=== PATIENT | female | born 1960 | race Caucasian/White ===

== ENCOUNTER → 2017-11-23 | Outpatient (CLI) | payer MEDICARE, MEDICAID ==
[2015-03-05 16:20] VITALS: BP 129/81
[~2017-11-23] MED LIST: ADVAIR IH; AMOXICILLIN 8751 TAB PO; AZASAN75 MG PO; B-122000 MCG MM; BECONASE AQ NA42 MCG NAS; CALCIUM + D 5001 TAB PO; CLONAZEPAM1 MG PO; FLEXERIL10 MG PO; HUMALOG100 U/ML SC; LANTUS100 U/ML; LANTUS100 U/ML SC; LUNESTA2 MG PO; LYRICA100 MG PO; MAGNESIUM500 MG PO; NEURONTIN300 MG PO; NORCO 325 MG-101 TA1 PO; PREVACID 30MG30 M1 PO; SINGULAIR10 MG PO; XANAX1 MG PO; ZYRTEC10 MG PO; [UNRECOGNIZED DRUG - OTHER] PO
[2017-11-23 16:06] LABS: EOS % 0.8 % (1.0-5.0); HEMATOCRIT 40.2 % (37.0-47.0); HEMOGLOBIN 13.8 g/dL (12.5-16.0); LYMPH# 1.1 (1.50-4.00); MEAN CELL VOLUME 94 fl (78-100); MEAN CORPUSCULAR HEMOGLOBIN 32 pg (27-31); MEAN CORPUSCULAR HGB CONC 34 g/dL (33-37); MEAN PLATELET VOLUME 9.8 fl (7.4-10.4); MONO # 0.3 (0.20-0.80); NEU # 2.2 (1.40-6.50); PLATELET COUNT 95 K/mm3 (130-400); RED BLOOD COUNT 4.29 M/mm3 (4.10-5.30); RED CELL DISTRIBUTION WIDTH 13.1 % (11.5-14.5); WHITE BLOOD COUNT 3.6 K/mm3 (4.8-10.8)
[2017-11-23 16:43] LABS: PROTHROMBIN TIME 9.9 SECONDS (9.0-12.0)
[2017-11-23 16:45] LABS: ALBUMIN 4.3 g/dL (3.5-5.0); CALCIUM 9.2 mg/dL (8.4-10.2); TOTAL BILIRUBIN 0.6 mg/dL (0.2-1.3); TOTAL PROTEIN 7.3 g/dL (6.3-8.2)
== END ==
LOC: LAB 15:42
PROVIDERS: Physician Assistant
DX: K75.4 Autoimmune hepatitis (principal); R74.8 Abnormal levels of other serum enzymes

== ENCOUNTER → 2017-11-25 | Outpatient (CLI) | payer MEDICARE, MEDICAID ==
[2015-03-05 16:20] VITALS: BP 129/81
== END ==
LOC: RAD 13:24
DX: R74.0 Nonspecific elevation of levels of transaminase and lactic acid dehydrogenase [LDH] (principal); R74.8 Abnormal levels of other serum enzymes

== ENCOUNTER → 2018-01-18 | Outpatient (CLI) | payer MEDICARE, MEDICAID ==
[2015-03-05 16:20] VITALS: BP 129/81
[2018-01-18 17:30] LABS: ALBUMIN 4.1 g/dL (3.5-5.0); CALCIUM 9.6 mg/dL (8.4-10.2); POTASSIUM 4.3 mmol/L (3.6-5.0); TOTAL BILIRUBIN 0.8 mg/dL (0.2-1.3); TOTAL PROTEIN 7.3 g/dL (6.3-8.2)
== END ==
LOC: LAB 16:39
PROVIDERS: Physician Assistant
DX: K75.4 Autoimmune hepatitis (principal); R74.8 Abnormal levels of other serum enzymes

== ENCOUNTER 2018-04-15 12:28 | Emergency (ER) | payer MEDICARE, MEDICAID ==
[~2018-04-15 12:28] MED LIST changes: +AZASAN100 M1 PO; -AZASAN75 MG PO; -CALCIUM + D 5001 TAB PO; +CITRACAL + BON1 EACH PO; -CLONAZEPAM1 MG PO; -HUMALOG100 U/ML SC; +INSULIN HUMA100 U/ML SQ; +KLONOPIN 1MG1 MG PO; +LANTUS PEN100 U/ML SQ; -LANTUS100 U/ML SC; +MAGNESIUM100 MG PO; -MAGNESIUM500 MG PO; +NEURONTIN300 M1 PO; -NEURONTIN300 MG PO; +XANAX0.5 M1 PO; -XANAX1 MG PO
[2018-04-15] MEDS ORDERED: BUDESONIDE3 MG PO (12:48)
[2018-04-15 14:23] LABS: EOS % 0.5 % (1.0-5.0); HEMATOCRIT 42.5 % (37.0-47.0); HEMOGLOBIN 14.1 g/dL (12.5-16.0); LYMPH# 1.1 (1.50-4.00); MEAN CELL VOLUME 98 fl (78-100); MEAN CORPUSCULAR HEMOGLOBIN 33 pg (27-31); MEAN CORPUSCULAR HGB CONC 33 g/dL (33-37); MEAN PLATELET VOLUME 9.4 fl (7.4-10.4); MONO # 0.4 (0.20-0.80); NEU # 2.4 (1.40-6.50); PLATELET COUNT 107 K/mm3 (130-400); RED BLOOD COUNT 4.34 M/mm3 (4.10-5.30); RED CELL DISTRIBUTION WIDTH 13.1 % (11.5-14.5); WHITE BLOOD COUNT 3.9 K/mm3 (4.8-10.8)
[2018-04-15 14:33] LABS: ALBUMIN 4.2 g/dL (3.5-5.0); CALCIUM 9.7 mg/dL (8.4-10.2); POTASSIUM 4.2 mmol/L (3.6-5.0); TOTAL BILIRUBIN 0.8 mg/dL (0.2-1.3); TOTAL PROTEIN 7.1 g/dL (6.3-8.2)
[2018-04-15 15:15] LABS: PH-URINE 5.5 (5.0 - 8.0); URINE APPEARANCE CLEAR; URINE BILIRUBIN NEGATIVE (NEGATIVE); URINE BLOOD NEGATIVE (NEGATIVE); URINE COLOR YELLOW; URINE GLUCOSE NEGATIVE (NEGATIVE); URINE KETONE NEGATIVE (NEGATIVE); URINE LEUKOCYTE ESTERASE NEGATIVE (NEGATIVE); URINE NITRATE NEGATIVE (NEGATIVE); URINE PROTEIN(semi-quant) TRACE mg/dL (NEGATIVE); URINE UROBILINOGEN NORMAL (NORMAL); URINE WBC 0-1 /hpf (0-3)
[2018-04-15] MEDS ORDERED: NORCO 10-325 T1 EACH PO (15:18)
[2018-04-15] MEDS ORDERED: KLONOPIN 1MG1 MG PO (15:21)
[2018-04-15] MEDS ORDERED: ADVIL LIQUI-GE200 M1 PO (15:27)
[2018-04-15] MEDS ORDERED: GAVISCON EXTRA PO (15:28)
[2018-04-15] MEDS ORDERED: ZESTRIL10 M1 PO (15:31)
[2018-04-15 15:59] VITALS: BP 130/74
== END 2018-04-15 16:00 | disposition home or self-care (01) ==
LOC: ED 12:28
PROVIDERS: Nurse Practitioner Primary Care
DX: M25.552 Pain in left hip (principal); E11.9 Type 2 diabetes mellitus without complications; M19.90 Unspecified osteoarthritis, unspecified site; Z79.4 Long term (current) use of insulin; Z79.51 Long term (current) use of inhaled steroids; Z98.890 Other specified postprocedural states; W01.0XXA Fall on same level from slipping, tripping and stumbling without subsequent striking against object, initial encounter; Y92.009 Unspecified place in unspecified non-institutional (private) residence as the place of occurrence of the external cause
CPT/HCPCS: J2270

== ENCOUNTER → 2018-05-09 | Outpatient (CLI) | payer MEDICARE, MEDICAID ==
[2018-04-15 15:59] VITALS: BP 130/74
[~2018-05-09] MED LIST changes: +ADVIL LIQUI-GE200 M1 PO; +BUDESONIDE3 MG PO; +GAVISCON EXTRA PO; +NORCO 10-325 T1 EACH PO; +ZESTRIL10 M1 PO
== END ==
LOC: RAD 13:10
DX: M16.0 Bilateral primary osteoarthritis of hip (principal); M25.452 Effusion, left hip; M25.451 Effusion, right hip

== ENCOUNTER → 2018-05-24 | Outpatient (CLI) | payer MEDICARE, MEDICAID ==
[2018-05-24 15:27] LABS: EOS % 0.9 % (1.0-5.0); HEMATOCRIT 42.6 % (37.0-47.0); HEMOGLOBIN 14.1 g/dL (12.5-16.0); MEAN CELL VOLUME 97 fl (78-100); MEAN CORPUSCULAR HEMOGLOBIN 32 pg (27-31); MEAN CORPUSCULAR HGB CONC 33 g/dL (33-37); MEAN PLATELET VOLUME 10.1 fl (7.4-10.4); MONO # 0.3 (0.20-0.80); PLATELET COUNT 92 K/mm3 (130-400); RED BLOOD COUNT 4.39 M/mm3 (4.10-5.30); RED CELL DISTRIBUTION WIDTH 12.8 % (11.5-14.5); WHITE BLOOD COUNT 3.3 K/mm3 (4.8-10.8)
[2018-05-24 15:57] LABS: PROTHROMBIN TIME 9.9 SECONDS (9.0-12.0)
[2018-05-24 15:59] LABS: ALBUMIN 4.1 g/dL (3.5-5.0); CALCIUM 9.3 mg/dL (8.4-10.2); POTASSIUM 3.8 mmol/L (3.6-5.0); TOTAL BILIRUBIN 0.4 mg/dL (0.2-1.3)
== END ==
LOC: LAB 14:54
DX: E11.9 Type 2 diabetes mellitus without complications (principal); K75.4 Autoimmune hepatitis; R74.8 Abnormal levels of other serum enzymes

== ENCOUNTER → 2018-06-06 | Outpatient (CLI) | payer MEDICARE, MEDICAID | LOC: RAD 13:00 | DX: K75.4 Autoimmune hepatitis (principal); E11.9 Type 2 diabetes mellitus without complications ==

== ENCOUNTER 2018-11-10 15:30 | Outpatient (RCR) | payer MEDICARE, MEDICAID | END 2018-11-15 | disposition still patient (30) | LOC: PT | DX: M54.9 Dorsalgia, unspecified (principal); M25.551 Pain in right hip; G89.29 Other chronic pain | CPT/HCPCS: G0283-GP ==

== ENCOUNTER 2019-01-03 10:30 | Emergency (ER) | payer MEDICARE, MEDICAID ==
[~2019-01-03] VITALS: Ht 162.6 cm; Wt 109.1 kg
[2019-01-03] MEDS ORDERED: VITAMIN B122500 MC2 (11:12)
[2019-01-03] MEDS ORDERED: PROAIR HFA0.09 MG/AC IH (11:15)
[2019-01-03 11:28] LABS: HEMATOCRIT 38.4 % (37.0-47.0); HEMOGLOBIN 12.9 g/dL (12.5-16.0); MEAN CELL VOLUME 95 fl (78-100); MEAN CORPUSCULAR HEMOGLOBIN 32 pg (27-31); MEAN CORPUSCULAR HGB CONC 34 g/dL (33-37); MEAN PLATELET VOLUME 9.6 fl (7.4-10.4); PLATELET COUNT 118 K/mm3 (130-400); RED BLOOD COUNT 4.05 M/mm3 (4.10-5.30); RED CELL DISTRIBUTION WIDTH 13.3 % (11.5-14.5); WHITE BLOOD COUNT 7.9 K/mm3 (4.8-10.8)
[2019-01-03 11:29] LABS: ALBUMIN 3.5 g/dL (3.5-5.0)
[2019-01-03 11:30] LABS: POTASSIUM 4.5 mmol/L (3.5-5.1)
[2019-01-03 11:32] LABS: TOTAL PROTEIN 7.1 g/dL (6.4-8.3)
[2019-01-03 11:34] LABS: TOTAL BILIRUBIN 0.5 mg/dL (0.2-1.2)
[2019-01-03 11:50] LABS: LYMPHOCYTE 14 % (20-51); MONOCYTE 11 % (3-10); NEUTROPHILS 75 % (42-75)
[2019-01-03 13:25] VITALS: BP 123/73
== END 2019-01-03 13:33 | disposition home or self-care (01) ==
LOC: ED 10:30
PROVIDERS: Nurse Practitioner Primary Care
DX: L03.317 Cellulitis of buttock (principal); E11.9 Type 2 diabetes mellitus without complications; I10 Essential (primary) hypertension; Z79.4 Long term (current) use of insulin
CPT/HCPCS: J0696; J2270

== ENCOUNTER → 2019-01-06 | Outpatient (CLI) | payer MEDICARE, MEDICAID ==
[2019-01-05 14:10] VITALS: BP 136/65
[~2019-01-06] MED LIST changes: +FUROSEMIDE20 MG PO; +PROAIR HFA0.09 MG/AC IH; +VITAMIN B122500 MC2
[2019-01-06 13:03] LABS: HEMATOCRIT 38.5 % (37.0-47.0); HEMOGLOBIN 12.9 g/dL (12.5-16.0); MEAN PLATELET VOLUME 9.2 fl (7.4-10.4); RED BLOOD COUNT 4.06 M/mm3 (4.10-5.30); RED CELL DISTRIBUTION WIDTH 13.2 % (11.5-14.5); WHITE BLOOD COUNT 7.8 K/mm3 (4.8-10.8)
[2019-01-06 13:12] LABS: ALBUMIN 3.5 g/dL (3.5-5.0); POTASSIUM 4.1 mmol/L (3.5-5.1)
[2019-01-06 13:13] LABS: CALCIUM 9.6 mg/dL (8.3-10.5)
[2019-01-06 13:14] LABS: TOTAL PROTEIN 7.3 g/dL (6.4-8.3)
[2019-01-06 13:16] LABS: TOTAL BILIRUBIN 0.4 mg/dL (0.2-1.2)
== END ==
LOC: LAB 12:49
DX: K61.1 Rectal abscess (principal)

== ENCOUNTER 2019-01-07 16:10 | Emergency (ER) | payer MEDICARE, MEDICAID ==
[~2019-01-07 16:10] MED LIST changes: -FUROSEMIDE20 MG PO
[2019-01-07 17:20] LABS: CALCIUM 9.7 mg/dL (8.3-10.5)
[2019-01-07] MEDS ORDERED: FUROSEMIDE20 MG PO (17:54)
[2019-01-07 18:13] VITALS: BP 139/79
== END 2019-01-07 18:20 | disposition home or self-care (01) ==
LOC: ED 16:10
PROVIDERS: Family Medicine
DX: L02.31 Cutaneous abscess of buttock (principal); R60.0 Localized edema; E11.9 Type 2 diabetes mellitus without complications; K74.60 Unspecified cirrhosis of liver; Z79.4 Long term (current) use of insulin
CPT/HCPCS: J0696

== ENCOUNTER 2019-01-08 14:17 | Outpatient (RCR) | payer MEDICARE, MEDICAID ==
--- NOTE | 2019-01-04 14:53 | NUR ---
UNABLE TO GET BP DUE TO PT TAKING BP CUFF OFF DUE TO "PAIN WITH TIGHTENING"
[2019-01-05 14:10] VITALS: BP 136/65
[2019-01-06 13:28] VITALS: BP 167/84
[~2019-01-08] VITALS: Ht 162.6 cm; Wt 109.1 kg
[~2019-01-08 14:17] MED LIST changes: +FUROSEMIDE20 MG PO
--- NOTE | 2019-01-08 14:29 | NUR ---
UNABLE TO OBTAIN VITAL SIGNS, PT VERY TEARFUL AND IN A STATE OF EMOTIONAL DISTRESS, STATES "I NEED IN AND OUT OF HERE [place]AND[place], I JUST WANT THE SHOT AND I HAVE TO GO, PLEASE HURRY," PT DENIES NEEDS FOR VITAL SIGNS, TRANSPORTATION WAITING IN [place] [address] [address], IM INJECTION ADMINISTERED AND PT LEAVES
== END 2019-01-08 18:00 | disposition home or self-care (01) ==
LOC: AMSURD 14:17
DX: Z51.81 Encounter for therapeutic drug level monitoring (principal); Z79.899 Other long term (current) drug therapy
CPT/HCPCS: J0696

== ENCOUNTER → 2019-01-09 | Outpatient (CLI) | payer MEDICARE, MEDICAID ==
[2019-01-07 18:13] VITALS: BP 139/79
== END ==
LOC: RAD 08:53
DX: K61.1 Rectal abscess (principal); M46.85 Other specified inflammatory spondylopathies, thoracolumbar region; M47.816 Spondylosis without myelopathy or radiculopathy, lumbar region; N20.0 Calculus of kidney; Z90.710 Acquired absence of both cervix and uterus; K82.8 Other specified diseases of gallbladder
CPT/HCPCS: Q9967

== ENCOUNTER 2019-05-08 13:53 | Emergency (ER) | payer MEDICARE, MEDICAID ==
[2019-05-08] MEDS ORDERED: IMURAN 50MG TAB50 MG PO (14:38)
[2019-05-08 15:07] LABS: HEMATOCRIT 42.8 % (37.0-47.0); MEAN CELL VOLUME 98 fl (78-100); MEAN CORPUSCULAR HEMOGLOBIN 32 pg (27-31); MEAN CORPUSCULAR HGB CONC 33 g/dL (33-37); MEAN PLATELET VOLUME 9.3 fl (7.4-10.4); PLATELET COUNT 104 K/mm3 (130-400); RED BLOOD COUNT 4.39 M/mm3 (4.10-5.30); RED CELL DISTRIBUTION WIDTH 13.6 % (11.5-14.5)
[2019-05-08 15:10] LABS: ALBUMIN 4.2 g/dL (3.5-5.0); POTASSIUM 3.6 mmol/L (3.5-5.1)
[2019-05-08 15:11] LABS: CALCIUM 9.3 mg/dL (8.3-10.5)
[2019-05-08 15:12] LABS: LYMPHOCYTE 11 % (20-51); MONOCYTE 11 % (3-10); NEUTROPHILS 76 % (42-75); TOTAL PROTEIN 7.7 g/dL (6.4-8.3)
[2019-05-08 15:14] LABS: TOTAL BILIRUBIN 1.3 mg/dL (0.2-1.2)
[2019-05-08 16:43] LABS: URINE APPEARANCE CLEAR; URINE BILIRUBIN NEGATIVE (NEGATIVE); URINE BLOOD NEGATIVE (NEGATIVE); URINE COLOR YELLOW; URINE GLUCOSE NEGATIVE (NEGATIVE); URINE KETONE NEGATIVE (NEGATIVE); URINE LEUKOCYTE ESTERASE NEGATIVE (NEGATIVE); URINE NITRATE NEGATIVE (NEGATIVE); URINE PROTEIN(semi-quant) NEGATIVE (NEGATIVE); URINE UROBILINOGEN NORMAL (NORMAL)
[2019-05-08] MEDS ORDERED: AUGMENTIN 875-1 EAC1 PO (17:16)
[2019-05-08 17:23] VITALS: BP 146/72
== END 2019-05-08 17:25 | disposition home or self-care (01) ==
LOC: ED 13:53
PROVIDERS: Nurse Practitioner Primary Care
DX: J18.9 Pneumonia, unspecified organism (principal); F41.9 Anxiety disorder, unspecified; F32.9 Major depressive disorder, single episode, unspecified; K21.9 Gastro-esophageal reflux disease without esophagitis; Z79.1 Long term (current) use of non-steroidal anti-inflammatories (NSAID)

== ENCOUNTER → 2020-09-11 | Outpatient (CLI) | payer MEDICARE, MEDICAID ==
[~2020-09-11] MED LIST changes: +AUGMENTIN 875-1 EAC1 PO; +B12 ACTIVE1000 MCG PO; +CALCIUM CITRAT200 M2 PO; +CEPHALEXIN500 M1 PO; +CICLOPIROX100 GM TOP; +DOXYCYCLINE MO100 M3 PO; +IMURAN 50MG TAB50 MG PO; +LIDOCAINE1 EACH TP; +MUPIROCIN2% TP; +POTASSIUM CHLO480 ML PO; +VITAMIN D21250 MCG PO
[2020-09-11 12:45] LABS: ALBUMIN 3.9 g/dL (3.4-4.8)
[2020-09-11 12:46] LABS: HEMATOCRIT 39.3 % (37.0-47.0); HEMOGLOBIN 13.3 g/dL (12.5-16.0); MEAN PLATELET VOLUME 9.8 fl (7.4-10.4); RED BLOOD COUNT 4.1 M/mm3 (4.10-5.30); RED CELL DISTRIBUTION WIDTH 13.4 % (11.5-14.5); WHITE BLOOD COUNT 6.6 K/mm3 (4.8-10.8)
[2020-09-11 12:47] LABS: CALCIUM 9.5 mg/dL (8.3-10.5)
[2020-09-11 12:48] LABS: TOTAL PROTEIN 7.1 g/dL (6.2-8.1)
[2020-09-11 12:50] LABS: TOTAL BILIRUBIN 0.8 mg/dL (0.2-1.2)
[2020-09-11 13:18] LABS: D-DIMER 2.24 mg/L FEU (0.15-0.50)
== END ==
LOC: LAB 11:43 → RAD 11:43
PROVIDERS: Family Medicine
DX: L03.115 Cellulitis of right lower limb (principal); R60.9 Edema, unspecified

== ENCOUNTER → 2020-12-07 | Outpatient (CLI) | payer MEDICARE, MEDICAID | LOC: LAB 17:52 → RAD 17:52 | DX: M79.605 Pain in left leg (principal) ==

== ENCOUNTER 2020-12-29 17:01 | Emergency (ER) | payer MEDICARE, MEDICAID ==
[~2020-12-29] VITALS: Ht 167.6 cm; Wt 109.1 kg
[~2020-12-29 17:01] MED LIST changes: -B12 ACTIVE1000 MCG PO; -CALCIUM CITRAT200 M2 PO; -CEPHALEXIN500 M1 PO; -CICLOPIROX100 GM TOP; -DOXYCYCLINE MO100 M3 PO; -LIDOCAINE1 EACH TP; -MUPIROCIN2% TP; -POTASSIUM CHLO480 ML PO; -VITAMIN D21250 MCG PO
[2020-12-29 17:55] LABS: BASO # 0.02 K/mm3 (0.02-0.10); EOS # 0.03 K/mm3 (0.04-0.40); EOS % 0.5 % (1.0-5.0); HEMATOCRIT 36.4 % (37.0-47.0); HEMOGLOBIN 12.5 g/dL (12.5-16.0); LYMPH# 0.91 K/mm3 (1.50-4.00); MEAN CELL VOLUME 94 fl (78-100); MEAN CORPUSCULAR HEMOGLOBIN 32 pg (27-31); MEAN CORPUSCULAR HGB CONC 34 g/dL (33-37); MONO # 0.66 K/mm3 (0.20-0.80); NEU # 4.68 K/mm3 (1.40-6.50); PLATELET COUNT 125 K/mm3 (130-400); RED BLOOD COUNT 3.87 M/mm3 (4.10-5.30); WHITE BLOOD COUNT 6.3 K/mm3 (4.8-10.8)
[2020-12-29 18:04] LABS: ALBUMIN 3.8 g/dL (3.4-4.8)
[2020-12-29 18:06] LABS: CALCIUM 10.2 mg/dL (8.3-10.5)
[2020-12-29] MEDS ORDERED: CALCIUM CITRAT200 M2 PO (18:06)
[2020-12-29 18:07] LABS: TOTAL PROTEIN 7.3 g/dL (6.2-8.1)
[2020-12-29] MEDS ORDERED: DOXYCYCLINE MO100 M3 PO (18:07)
[2020-12-29 18:09] LABS: POTASSIUM 2.8 mmol/L (3.5-5.1); TOTAL BILIRUBIN 0.9 mg/dL (0.2-1.2)
[2020-12-29] MEDS ORDERED: CICLOPIROX100 GM TOP (18:10)
[2020-12-29] MEDS ORDERED: VITAMIN D21250 MCG PO (18:15)
[2020-12-29] MEDS ORDERED: FUROSEMIDE20 MG PO (18:17)
[2020-12-29] MEDS ORDERED: LIDOCAINE1 EACH TP (18:18)
[2020-12-29] MEDS ORDERED: MUPIROCIN2% TP (18:21)
[2020-12-29] MEDS ORDERED: POTASSIUM CHLO480 ML PO (18:23)
[2020-12-29 18:59] VITALS: BP 155/78
[2020-12-30] MEDS ORDERED: VITAMIN D21250 MCG PO (06:29)
== END 2020-12-29 18:59 | disposition short-term general hospital (02) ==
LOC: ED 17:01
PROVIDERS: Physician Assistant
DX: L03.116 Cellulitis of left lower limb (principal); L03.115 Cellulitis of right lower limb; E87.6 Hypokalemia
CPT/HCPCS: J3480

== ENCOUNTER 2020-12-29 18:40 | Inpatient (IN) | payer MEDICARE, MEDICAID ==
[~2020-12-29] VITALS: Ht 162.6 cm; Wt 102.9 kg
[~2020-12-29 18:40] MED LIST changes: +CALCIUM CITRAT200 M2 PO; +CICLOPIROX100 GM TOP; +DOXYCYCLINE MO100 M3 PO; +LIDOCAINE1 EACH TP; +MUPIROCIN2% TP; +POTASSIUM CHLO480 ML PO; +VITAMIN D21250 MCG PO
[2020-12-29 22:12] VITALS: BP 168/79
[2020-12-29 23:12] LABS: URINE APPEARANCE CLEAR; URINE COLOR YELLOW
[2020-12-29 23:13] LABS: URINE BILIRUBIN NEGATIVE (NEGATIVE); URINE BLOOD NEGATIVE (NEGATIVE); URINE GLUCOSE NEGATIVE (NEGATIVE); URINE KETONE NEGATIVE (NEGATIVE); URINE LEUKOCYTE ESTERASE NEGATIVE (NEGATIVE); URINE NITRATE NEGATIVE (NEGATIVE); URINE PROTEIN(semi-quant) NEGATIVE (NEGATIVE); URINE UROBILINOGEN NORMAL (NORMAL); URINE WBC 0-1 /hpf (0-3)
[2020-12-30 01:39] VITALS: BP 161/82
[2020-12-30 05:41] VITALS: BP 146/80
[2020-12-30] MEDS ORDERED: VITAMIN D21250 MCG PO (06:29)
[2020-12-30 07:14] LABS: BASO # 0.01 K/mm3 (0.02-0.10); EOS # 0.02 K/mm3 (0.04-0.40); EOS % 0.5 % (1.0-5.0); HEMATOCRIT 34.5 % (37.0-47.0); HEMOGLOBIN 11.2 g/dL (12.5-16.0); LYMPH# 0.78 K/mm3 (1.50-4.00); MEAN CELL VOLUME 97 fl (78-100); MEAN CORPUSCULAR HEMOGLOBIN 32 pg (27-31); MEAN CORPUSCULAR HGB CONC 33 g/dL (33-37); MEAN PLATELET VOLUME 9.6 fl (7.4-10.4); MONO # 0.52 K/mm3 (0.20-0.80); NEU # 3.05 K/mm3 (1.40-6.50); PLATELET COUNT 111 K/mm3 (130-400); RED BLOOD COUNT 3.56 M/mm3 (4.10-5.30); RED CELL DISTRIBUTION WIDTH 13.1 % (11.5-14.5); WHITE BLOOD COUNT 4.4 K/mm3 (4.8-10.8)
[2020-12-30 07:19] LABS: ALBUMIN 3.2 g/dL (3.4-4.8); POTASSIUM 4.3 mmol/L (3.5-5.1)
[2020-12-30 07:20] LABS: CALCIUM 9.7 mg/dL (8.3-10.5)
[2020-12-30 07:21] LABS: TOTAL PROTEIN 6.1 g/dL (6.2-8.1)
[2020-12-30 07:23] LABS: TOTAL BILIRUBIN 0.6 mg/dL (0.2-1.2)
[2020-12-30 07:28] LABS: MAGNESIUM 1.95 mg/dL (1.60-2.60)
[2020-12-30 09:16] VITALS: BP 188/91
[2020-12-30 13:29] VITALS: BP 143/97
== END 2020-12-30 14:02 | disposition home or self-care (01) | DRG 641 ==
LOC: MED/SURG 18:40
PROVIDERS: Family Medicine; Nurse Practitioner; ADMIT Physician Assistant
DX: E87.6 Hypokalemia (principal); L03.116 Cellulitis of left lower limb; L03.115 Cellulitis of right lower limb; E83.42 Hypomagnesemia; K75.4 Autoimmune hepatitis; I10 Essential (primary) hypertension; E11.9 Type 2 diabetes mellitus without complications; F41.9 Anxiety disorder, unspecified; F32.9 Major depressive disorder, single episode, unspecified; Z79.4 Long term (current) use of insulin; Z79.891 Long term (current) use of opiate analgesic; Z90.710 Acquired absence of both cervix and uterus; Z88.1 Allergy status to other antibiotic agents; Z88.8 Allergy status to other drugs, medicaments and biological substances
CPT/HCPCS: J1650; J3475; J3480

== ENCOUNTER 2021-01-06 17:24 | Outpatient (RCR) | payer MEDICARE, MEDICAID ==
[2021-01-02 17:23] VITALS: BP 176/78
[2021-01-03 16:21] VITALS: BP 118/75
[2021-01-04 15:58] VITALS: BP 144/61
[2021-01-05 16:25] VITALS: BP 153/79
[~2021-01-06] VITALS: Ht 162.6 cm; Wt 102.9 kg
[2021-01-06 17:52] VITALS: BP 130/76
== END 2021-01-06 18:00 | disposition home or self-care (01) ==
LOC: AMSURD 17:24
DX: L03.115 Cellulitis of right lower limb (principal); L03.116 Cellulitis of left lower limb
CPT/HCPCS: J0696

== ENCOUNTER 2021-02-15 14:07 | Emergency (ER) | payer MEDICARE, MEDICAID ==
[~2021-02-15] VITALS: Ht 162.6 cm; Wt 102.9 kg
[2021-02-15 15:29] LABS: ALBUMIN 3.8 g/dL (3.4-4.8); POTASSIUM 3.6 mmol/L (3.5-5.1)
[2021-02-15 15:30] LABS: CALCIUM 9.2 mg/dL (8.3-10.5)
[2021-02-15 15:31] LABS: HEMATOCRIT 38.3 % (37.0-47.0); HEMOGLOBIN 12.6 g/dL (12.5-16.0); MEAN CELL VOLUME 96 fl (78-100); MEAN CORPUSCULAR HEMOGLOBIN 32 pg (27-31); MEAN CORPUSCULAR HGB CONC 33 g/dL (33-37); MEAN PLATELET VOLUME 9.7 fl (7.4-10.4); PLATELET COUNT 87 K/mm3 (130-400); RED BLOOD COUNT 3.99 M/mm3 (4.10-5.30); RED CELL DISTRIBUTION WIDTH 13.4 % (11.5-14.5); TOTAL PROTEIN 6.6 g/dL (6.2-8.1); WHITE BLOOD COUNT 7.4 K/mm3 (4.8-10.8)
[2021-02-15] MEDS ORDERED: B12 ACTIVE1000 MCG PO (15:32)
[2021-02-15 15:33] LABS: TOTAL BILIRUBIN 0.9 mg/dL (0.2-1.2)
[2021-02-15 15:41] LABS: LYMPHOCYTE 6 % (20-51); MONOCYTE 6 % (3-10); NEUTROPHILS 88 % (42-75)
[2021-02-15] MEDS ORDERED: CEPHALEXIN500 M1 PO (16:18)
[2021-02-15 16:50] VITALS: BP 147/66
== END 2021-02-15 16:58 | disposition home or self-care (01) ==
LOC: ED 14:07
PROVIDERS: Family Medicine
DX: L03.116 Cellulitis of left lower limb (principal); L03.115 Cellulitis of right lower limb; E11.9 Type 2 diabetes mellitus without complications; I10 Essential (primary) hypertension; E78.5 Hyperlipidemia, unspecified; Z79.4 Long term (current) use of insulin; Z79.899 Other long term (current) drug therapy
CPT/HCPCS: J0696

== ENCOUNTER → 2021-11-19 | Outpatient (CLI) | payer MEDICARE, MEDICAID ==
[~2021-11-19] MED LIST changes: +B12 ACTIVE1000 MCG PO; +CEPHALEXIN500 M1 PO
== END ==
LOC: RAD 18:52
DX: M25.552 Pain in left hip (principal); W19.XXXA Unspecified fall, initial encounter

== ENCOUNTER 2022-05-18 16:02 | Emergency (ER) | payer MEDICARE, MEDICAID ==
[~2022-05-18 16:02] MED LIST changes: -CALCIUM CITRAT200 M2 PO; +CITRACAL + D M1 EACH PO; +IMODIUM 2MG CAPS2 MG PO; +LANTUS SOLOS100 U/ML SQ; +ULTRAM50 M1 PO
[2022-05-18 17:28] LABS: URINE APPEARANCE CLEAR; URINE BILIRUBIN NEGATIVE (NEGATIVE); URINE BLOOD NEGATIVE (NEGATIVE); URINE COLOR YELLOW; URINE GLUCOSE NEGATIVE (NEGATIVE); URINE KETONE NEGATIVE (NEGATIVE); URINE LEUKOCYTE ESTERASE NEGATIVE (NEGATIVE); URINE NITRATE NEGATIVE (NEGATIVE); URINE PROTEIN(semi-quant) NEGATIVE (NEGATIVE); URINE UROBILINOGEN NORMAL (NORMAL); URINE WBC 0-1 /hpf (0-3)
[2022-05-18 18:28] VITALS: BP 177/83
== END 2022-05-18 17:34 | disposition home or self-care (01) ==
LOC: ED 16:02
PROVIDERS: Nurse Practitioner
DX: S76.011A Strain of muscle, fascia and tendon of right hip, initial encounter (principal); Z28.310 Unvaccinated for COVID-19; X58.XXXA Exposure to other specified factors, initial encounter
CPT/HCPCS: J2270

== ENCOUNTER → 2024-06-09 | Outpatient (CLI) | payer MEDICARE, MEDICAID ==
[~2024-06-09] MED LIST changes: +ACETAMINOPHEN-H1 TA1 PO; +ATHLETE'S FOOT1% TP; +BETAMETHASONE D0.05% TOP; +CEPHALEXIN500 M2; +CICLOPIROX OLAM0.771 TP; +DIFLUCAN150 M1 PO; +LIDOCAINE PAIN1 EACH TP; +ONDANSETRON HYDR4 MG PO; +SUDAFED 12-HOU120 MG PO; +TRAMADOL 50 MG TAB PO; +VIBRAMYCIN HYC100 MG PO; +[UNRECOGNIZED DRUG - CODE] IR
[2024-06-09 17:19] LABS: HEMATOCRIT 28.3 % (37.0-47.0); HEMOGLOBIN 8.1 g/dL (12.5-16.0); MEAN CELL VOLUME 88 fl (78-100); MEAN CORPUSCULAR HEMOGLOBIN 25 pg (27-31); MEAN CORPUSCULAR HGB CONC 29 g/dL (33-37); MEAN PLATELET VOLUME 9.8 fl (7.4-10.4); PLATELET COUNT 154 K/mm3 (130-400); RED BLOOD COUNT 3.21 M/mm3 (4.10-5.30); RED CELL DISTRIBUTION WIDTH 17.5 % (11.5-14.5); WHITE BLOOD COUNT 4.7 K/mm3 (4.8-10.8)
[2024-06-09 17:23] LABS: ALBUMIN 3.7 g/dL (3.4-4.8)
[2024-06-09 17:24] LABS: CALCIUM 9.1 mg/dL (8.3-10.5)
[2024-06-09 17:25] LABS: TOTAL PROTEIN 6.6 g/dL (6.2-8.1)
[2024-06-09 17:27] LABS: TOTAL BILIRUBIN 0.4 mg/dL (0.2-1.2)
[2024-06-09 17:44] LABS: HYPOCHROMIA 1+; LYMPHOCYTE 6 % (20-51); MONOCYTE 3 % (3-10); NEUTROPHILS 89 % (42-75); OVALOCYTES 1+
== END ==
LOC: LAB 16:50
PROVIDERS: Internal Medicine
DX: E11.622 Type 2 diabetes mellitus with other skin ulcer (principal); K75.4 Autoimmune hepatitis; L98.499 Non-pressure chronic ulcer of skin of other sites with unspecified severity

== ENCOUNTER → 2024-06-26 | Outpatient (CLI) | payer MEDICARE, MEDICAID ==
[2024-06-26 16:16] LABS: CALCIUM 8.5 mg/dL (8.3-10.5)
== END ==
LOC: LAB 15:50
DX: R60.0 Localized edema (principal)

== ENCOUNTER → 2024-06-29 | Outpatient (CLI) | payer MEDICARE, MEDICAID ==
[2024-06-29 16:18] LABS: ALBUMIN 3.6 g/dL (3.4-4.8)
[2024-06-29 16:19] LABS: CALCIUM 8.5 mg/dL (8.3-10.5)
[2024-06-29 16:26] LABS: MAGNESIUM 1.78 mg/dL (1.60-2.60)
== END ==
LOC: LAB 15:56
DX: E83.42 Hypomagnesemia (principal); E87.6 Hypokalemia; R60.0 Localized edema

== ENCOUNTER → 2024-07-10 | Outpatient (CLI) | payer MEDICARE, MEDICAID ==
[2024-07-10 16:55] LABS: ALBUMIN 3.4 g/dL (3.4-4.8)
[2024-07-10 16:56] LABS: CALCIUM 8.8 mg/dL (8.3-10.5)
[2024-07-10 16:57] LABS: TOTAL PROTEIN 6.2 g/dL (6.2-8.1)
[2024-07-10 16:59] LABS: TOTAL BILIRUBIN 0.4 mg/dL (0.2-1.2)
[2024-07-10 17:04] LABS: MAGNESIUM 1.91 mg/dL (1.60-2.60)
== END ==
LOC: LAB 16:27
DX: R60.0 Localized edema (principal)